=== PATIENT | male | born 1965 | race Caucasian/White ===

== ENCOUNTER 2016-12-17 23:00 | Emergency (ER) | payer BC ==
[2016-12-17 19:37] LABS: BASOPHILS 0.2 %; BASOPHILS ABSOLUTE 0.02 10/3/uL (0.0-0.16); EOSINOPHILS 0.2 %; EOSINOPHILS ABSOLUTE 0.02 10/3/uL (0.0-0.53); ER CBC TAT 0 Hrs 05 Mins; HEMATOCRIT 46.7 % (40.0-51.0); HEMOGLOBIN 16.5 g/dL (13.6-17.8); IMMATURE GRANULOCYTES 0.4 %; IMMATURE GRANULOCYTES ABSOLUTE 0.03 10/3/uL (0.0-0.11); LYMPHOCYTES 14.9 %; LYMPHOCYTES ABSOLUTE 1.24 10/3/uL (0.67-4.30); MANUAL DIFF NO %; MEAN CORPUS HGB CONC 35.3 g/dL (32.0-36.0); MEAN CORPUSCULAR HEMOGLOB 29.8 pg (26.0-34.0); MEAN CORPUSCULAR VOLUME 84.3 fL (80-100); MEAN PLATELET VOLUME 9.5 fL (9.2-13.0); MONOCYTES 0.8 %; MONOCYTES ABSOLUTE 0.07 10/3/uL (0.21-1.20); NEUTROPHILS 83.5 %; NEUTROPHILS ABSOLUTE 6.95 10/3/uL (2.02-8.40); PLATELET COUNT 185 10/3/uL (150-400); RBC DISTRIBUTION WIDTH 12.6 % (12.0-16.0); RED CELL COUNT 5.54 10/6/uL (4.7-6.1); WHITE BLOOD CELLS 8.3 10/3/uL (4.5-10.5)
[2016-12-17 19:44] LABS: PARTIAL THROMBO TIME 26.9 SEC (22.5-37.2); PROTIME (NOT ORD) 13.4 SEC (12.0-14.5)
[2016-12-17 19:53] LABS: CALCIUM, SERUM 9.1 MG/DL (8.5-10.4); CHEST PAIN PROFILE TAT 0 Hrs 21 Mins; CHLORIDE, SERUM 104 MMOL/L (96-112); CO2 (CARBON DIOXIDE) 24 MMOL/L (24-34); CREATININE 1.32 MG/DL (0.70-1.30); GFR AFRICAN AMERICAN 72 ML/MIN (>=60); GFR NON AFRICAN AMERICAN 62 ML/MIN (>=60); POTASSIUM, SERUM 4.2 MMOL/L (3.5-5.3); SODIUM, SERUM 139 MMOL/L (135-148); TROPONIN I <0.02 NG/ML (<0.05)
[2016-12-17 19:56] LABS: BUN (BLOOD UREA NITROGEN) 10 MG/DL (6-23); GLUCOSE, SERUM 182 MG/DL (60-99)
== END 2016-12-17 23:25 | disposition home or self-care (01) ==
LOC: ER 23:00
PROVIDERS: Emergency Medicine
DX: R07.9 Chest pain, unspecified (principal); F32.9 Major depressive disorder, single episode, unspecified; F41.9 Anxiety disorder, unspecified
CPT/HCPCS: 71020; 80048; 83735; 84484; 85025; 85610; 85730; 93005; 99285; A9270-GY